=== PATIENT | male | born 1980 | race Caucasian/White ===

== ENCOUNTER 2016-11-19 19:26 | Emergency (ER) | payer SELFPAY ==
[~2016-11-19] VITALS: Ht 182.9 cm; Wt 161.3 kg
[~2016-11-19 19:26] MED LIST: IBUPROFEN800 MG PO; MOTRIN600 MG PO; NOHOMEMEDS; NORCO 5/3251 TABLET PO; NORCO 7.5/321 TABLET PO; VICODIN 5-3001 EACH PO
[2016-11-19 20:30] LABS: HEMATOCRIT 44.9 % (38.0-50.0); MCH 31.3 PG (29.0-34.0); MCHC 34.3 G/DL (30.0-36.0); MCV 91.3 FL (86-99); MEAN PLAT.VOLUME 10.9 uM^3 (9.0-12.4); PLATELET COUNT 150 K/uL (156-360); RBC DIS.WIDTH-CV 13.3 % (11.8-14.6); RBC DIS.WIDTH-SD 44.2 % (39-53); RED BLOOD COUNT 4.92 M/uL (4.00-5.50); WHITE BLOOD COUNT 6.4 K/uL (4.1-10.2)
[2016-11-19 20:48] LABS: CHLORIDE 106 mEq/L (99-109); POTASSIUM 4.1 mEq/L (3.7-5.4); SODIUM 142 mEq/L (136-147)
[2016-11-19 20:50] LABS: GLUCOSE 108 mg/dL (70-99)
[2016-11-19 20:51] LABS: ANION GAP 11 MEQ/L (2-14)
[2016-11-19 20:52] LABS: TOTAL BILIRUBIN 0.5 mg/dL (0.0-1.0)
[2016-11-19 20:53] LABS: ALKALINE PHOSPHATASE 68 IU/L (3-129)
[2016-11-19 20:54] LABS: GFR ESTIMATE (CALCULATED) 48 mL/min/
[2016-11-19 20:55] LABS: UREA NITROGEN (BUN) 19 mg/dL (9-23)
[2016-11-19 20:57] LABS: URIC ACID 7.6 mg/dL (3.1-9.2)
[2016-11-19 21:15] LABS: ADD MIUA? YES; BILIRUBIN NEGATIVE; BLOOD NEGATIVE; COLOR YELLOW ((YELLOW)); GLUCOSE (STRIP) NEGATIVE; KETONES NEGATIVE; LEUKOCYTES NEGATIVE; NITRITE NEGATIVE; PROTEIN (STRIP) NEGATIVE; SPECIFIC GRAVITY 1.013 (1.000-1.030); UROBILINOGEN 0.2 MG/DL (0.2-1.0)
[2016-11-19 21:22] LABS: BACTERIA NONE SEEN /HPF; EPITHELIAL CELLS NONE SEEN /HPF; MUCUS TRACE /LPF; RED BLOOD CELLS 0-5 /HPF (0-5); UCUL ADDED? NO; WHITE BLOOD CELLS 0-5 /HPF (0-5)
[2016-11-19 21:37] LABS: C-REACTIVE PROTEIN 2.8 MG/L (0-10)
[2016-11-19 22:06] VITALS: BP 140/81
== END 2016-11-19 22:07 | disposition home or self-care (01) ==
LOC: EME 19:26
PROVIDERS: Physician Assistant
DX: R94.5 Abnormal results of liver function studies (principal); R94.4 Abnormal results of kidney function studies; M79.89 Other specified soft tissue disorders; R60.0 Localized edema; F17.200 Nicotine dependence, unspecified, uncomplicated
CPT/HCPCS: 73630; 80053; 81003; 84550; 85027; 86140; 93971; 99281; 99283

== ENCOUNTER 2017-03-23 20:25 | Emergency (ER) | payer OTHER ==
[~2017-03-23] VITALS: Ht 182.9 cm; Wt 163.1 kg
[2017-03-23 20:52] LABS: ADD MIUA? NO; BILIRUBIN NEGATIVE; BLOOD NEGATIVE; COLOR YELLOW ((YELLOW)); GLUCOSE (STRIP) NEGATIVE; KETONES NEGATIVE; LEUKOCYTES NEGATIVE; NITRITE NEGATIVE; PROTEIN (STRIP) NEGATIVE; SPECIFIC GRAVITY 1.024 (1.000-1.030); UCUL ADDED? NO
[2017-03-23 21:25] LABS: HEMATOCRIT 45.9 % (38.0-50.0); MCH 31.4 PG (29.0-34.0); MCHC 34.2 G/DL (30.0-36.0); MCV 91.8 FL (86-99); MEAN PLAT.VOLUME 10.8 uM^3 (9.0-12.4); PLATELET COUNT 155 K/uL (156-360); RBC DIS.WIDTH-CV 13.4 % (11.8-14.6); RBC DIS.WIDTH-SD 45.2 % (39-53); WHITE BLOOD COUNT 7.5 K/uL (4.1-10.2)
[2017-03-23 21:48] LABS: ALKALINE PHOSPHATASE 81 IU/L (3-129); ANION GAP 8 MEQ/L (2-14); CHLORIDE 106 MEQ/L (99-109); GFR ESTIMATE (CALCULATED) > 59 mL/min/; GLUCOSE 106 mg/dL (70-99); LIPASE 31 U/L (1.0-51.0); POTASSIUM 3.9 MEQ/L (3.7-5.4); SAMPLE HEMOLYSIS CHECK 0; SAMPLE ICTERIC CHECK 0; SAMPLE LIPEMIA CHECK 0; SODIUM 138 MEQ/L (136-147); TOTAL BILIRUBIN 0.3 MG/DL (0.0-1.0); UREA NITROGEN (BUN) 15 mg/dL (9-23)
[2017-03-23] MEDS ORDERED: BENTYL10 MG PO (23:52)
[2017-03-23] MEDS ORDERED: PEPCID20 MG PO (23:52)
[2017-03-24 00:22] VITALS: BP 128/73
== END 2017-03-24 00:24 | disposition home or self-care (01) ==
LOC: EME 20:25 → RME 20:25
DX: R10.9 Unspecified abdominal pain (principal); F17.200 Nicotine dependence, unspecified, uncomplicated
CPT/HCPCS: 74176; 80053; 81003; 83690; 85027; 99281; 99284

== ENCOUNTER 2017-09-27 14:40 | Inpatient (IN) | payer OTHER ==
[~2017-09-27] VITALS: Ht 182.9 cm; Wt 128.8 kg
[~2017-09-27 14:40] MED LIST changes: +BENTYL10 MG PO; +PEPCID20 MG PO
[2017-09-27 15:09] LABS: HEMATOCRIT 47.4 % (38.0-50.0); HEMOGLOBIN 16.6 G/DL (12.5-16.6); MCH 31.5 PG (29.0-34.0); MCV 89.9 FL (86-99); PLATELET COUNT 164 K/uL (156-360); RBC DIS.WIDTH-CV 13.9 % (11.8-14.6); RBC DIS.WIDTH-SD 45.9 % (39-53); RED BLOOD COUNT 5.27 M/uL (4.00-5.50); WHITE BLOOD COUNT 6.4 K/uL (4.1-10.2)
[2017-09-27 15:17] LABS: CHLORIDE 103 mEq/L (99-109); POTASSIUM 4.5 mEq/L (3.7-5.4); SODIUM 137 mEq/L (136-147)
[2017-09-27 15:18] LABS: GLUCOSE 107 mg/dL (70-99)
[2017-09-27 15:22] LABS: GFR ESTIMATE (CALCULATED) > 59 mL/min/ (58.99-99999)
[2017-09-27 15:23] LABS: UREA NITROGEN (BUN) 10 mg/dL (9-23)
[2017-09-27 15:28] LABS: TROP-I INTERPRETATION NEGATIVE; TROPONIN-I 0.05 ng/mL (0.0-0.30)
[2017-09-27 17:40] LABS: TROP-I INTERPRETATION NEGATIVE; TROPONIN-I 0.22 ng/mL (0.0-0.30)
[2017-09-27] MEDS ORDERED: VENTOLIN HFA18 GM IH (18:16)
[2017-09-27] MEDS ORDERED: MOTRIN800 MG PO (18:16)
[2017-09-27] MEDS ORDERED: INCRUSE ELLI62.5 MCG IH (18:17)
[2017-09-27 19:49] LABS: ALBUMIN 4.1 g/dL (3.2-4.8)
[2017-09-27 19:52] LABS: TOTAL PROTEIN 7.6 g/dL (6.4-8.3)
[2017-09-27 19:54] LABS: TOTAL BILIRUBIN 0.6 mg/dL (0.0-1.0)
[2017-09-27 19:55] LABS: ALKALINE PHOSPHATASE 94 IU/L (3-129)
[2017-09-27 19:57] LABS: AST (GOT) 51 IU/L (2-34)
[2017-09-27 19:58] LABS: ALT (GPT) 81 IU/L (3-49); DIRECT BILIRUBIN 0.2 mg/dL (0.0-0.3)
[2017-09-27 19:59] LABS: LIPASE 23 U/L (1.0-51.0)
[2017-09-27 22:48] LABS: TROP-I INTERPRETATION POSITIVE
[2017-09-27 22:51] LABS: TROPONIN-I 1.63 ng/mL (0.0-0.30)
[2017-09-27 23:33] LABS: PTT 26.2 SEC (25-37)
[2017-09-28] VITALS (10 sets, daily range): BP systolic 103–154; BP diastolic 62–99
[2017-09-28 05:07] LABS: TROP-I INTERPRETATION POSITIVE; TROPONIN-I 7.85 ng/mL (0.0-0.30)
[2017-09-28 06:24] LABS: BASOPHIL (%) 0.5 % (0-1); EOSINOPHIL (%) 2.9 % (0-5); EOSINOPHIL COUNT 0.2 K/uL (0-0.3); HEMATOCRIT 42.1 % (38.0-50.0); IMMATURE GRANULOCYTE (%) 0.3 % (0.0-0.7); LYMPHOCYTE (%) 42.9 % (15-42); LYMPHOCYTE COUNT 2.7 K/uL (1.0-2.8); MCHC 34.2 G/DL (30.0-36.0); MCV 90.7 FL (86-99); MONOCYTE (%) 8.9 % (3-12); MONOCYTE COUNT 0.6 K/uL (0-0.8); NEUTROPHIL (%) 44.5 % (45-76); NEUTROPHIL COUNT 2.8 K/uL (1.8-6.4); PLATELET COUNT 156 K/uL (156-360); RBC DIS.WIDTH-CV 14.1 % (11.8-14.6); RBC DIS.WIDTH-SD 47.2 % (39-53); RED BLOOD COUNT 4.64 M/uL (4.00-5.50); WHITE BLOOD COUNT 6.2 K/uL (4.1-10.2)
[2017-09-28 06:29] LABS: HEMOGLOBIN 14.4 G/DL (12.5-16.6)
[2017-09-28 06:41] LABS: CHLORIDE 106 MEQ/L (99-109); GFR ESTIMATE (CALCULATED) > 59 mL/min/ (58.99-99999); GLUCOSE 99 mg/dL (70-99); POTASSIUM 4.1 MEQ/L (3.7-5.4); SODIUM 137 MEQ/L (136-147); UREA NITROGEN (BUN) 11 mg/dL (9-23)
[2017-09-28 08:15] LABS: BENZODIAZEPINES, URINE SCREEN Negative (200 ng/mL)
[2017-09-28 11:14] LABS: HDL CHOLESTEROL 37 MG/DL (Desirable>=40); LDL CHOLESTEROL 99 mg/dL (Desirable<100); NON-HDL CHOLESTEROL 121 mg/dL (Desirable<160); TOTAL CHOLESTEROL 158 mg/dL (Desirable<200); TRIGLYCERIDES 110 MG/DL (Normal: <150)
[2017-09-28 13:30] LABS: HEMOGLOBIN A1c (GLYCOHEMOGLOB) 5.2 % (Below 5.7)
[2017-09-29 04:30] VITALS: BP 96/54
[2017-09-29 06:11] LABS: HEMATOCRIT 44.1 % (38.0-50.0); HEMOGLOBIN 14.8 G/DL (12.5-16.6); MCH 30.6 PG (29.0-34.0); MCHC 33.6 G/DL (30.0-36.0); MCV 91.1 FL (86-99); PLATELET COUNT 158 K/uL (156-360); RBC DIS.WIDTH-SD 47.1 % (39-53); RED BLOOD COUNT 4.84 M/uL (4.00-5.50); WHITE BLOOD COUNT 6.3 K/uL (4.1-10.2)
[2017-09-29 06:35] LABS: CHLORIDE 104 MEQ/L (99-109); CREATININE 0.9 MG/DL (0.6-1.3); GFR ESTIMATE (CALCULATED) > 59 mL/min/ (58.99-99999); GLUCOSE 97 mg/dL (70-99); MAGNESIUM 2.1 mg/dl (1.3-2.7); POTASSIUM 4.3 MEQ/L (3.7-5.4); SODIUM 138 MEQ/L (136-147); UREA NITROGEN (BUN) 11 mg/dL (9-23)
[2017-09-29 07:15] VITALS: BP 115/77
[2017-09-29 11:25] VITALS: BP 111/58
[2017-09-29] MEDS ORDERED: ASPIR-LOW81 MG PO (14:00)
[2017-09-29] MEDS ORDERED: PRAVASTATIN SOD80 MG PO (14:00)
[2017-09-29 14:06] VITALS: BP 116/76
[2017-09-30 20:42] LABS: PROTEIN C FUNCTIONAL ACTIVITY+ 87 % (70-180)
[2017-10-01 10:58] LABS: ANTITHROMBIN III ACTIVITY+ 93 % activi (80-120)
[2017-10-01 13:04] LABS: Protein S, Free 109 % normal (57-171)
[2017-10-03 23:37] LABS: ACTIVATED PROTEIN C RESIST+ 4.8 ratio (>=2.1); DRVVT Mixing Study Interp Not Indicated (()); FACTOR VIII ACTIVITY+ 247 % (50-180); PROTEIN C FUNCTIONAL ACTIVITY+ 84 % (70-180); PTT-LA 29 sec (<=40); dRVVT Screen 35 sec (<=45)
[2017-10-04 11:09] LABS: ANTITHROMBIN III ACTIVITY+ 93 % activi (80-120)
== END 2017-09-29 14:52 | disposition home or self-care (01) | DRG 64 ==
LOC: EME 14:40 → EDOF 21:45 → ENRESERV 21:50 → CANRESERV 22:07 → 4EAST 22:58 → EDOF 22:58 → ENRESERV 22:59 → 4EAST 09-28 02:31
PROVIDERS: Hospitalist; Internal Medicine; Physician Assistant; Psychiatry & Neurology Clinical Neurophysiology
DX: I63.532 Cerebral infarction due to unspecified occlusion or stenosis of left posterior cerebral artery (principal); I24.8 Other forms of acute ischemic heart disease; G93.6 Cerebral edema; H53.121 Transient visual loss, right eye; R20.0 Anesthesia of skin; R51 Headache; G83.21 Monoplegia of upper limb affecting right dominant side; I10 Essential (primary) hypertension; E78.5 Hyperlipidemia, unspecified; G47.33 Obstructive sleep apnea (adult) (pediatric); G89.21 Chronic pain due to trauma; J45.909 Unspecified asthma, uncomplicated; E66.01 Morbid (severe) obesity due to excess calories; Z68.38 Body mass index [BMI] 38.0-38.9, adult; B19.20 Unspecified viral hepatitis C without hepatic coma; F11.10 Opioid abuse, uncomplicated; F14.10 Cocaine abuse, uncomplicated; F17.200 Nicotine dependence, unspecified, uncomplicated; Z91.19 Patient's noncompliance with other medical treatment and regimen; Z87.820 Personal history of traumatic brain injury; Z83.3 Family history of diabetes mellitus; Z80.1 Family history of malignant neoplasm of trachea, bronchus and lung
CPT/HCPCS: 70496; 70498; 70551; 70552; 71046; 71275; 80048; 80061; 80076; 80306 90; 81240 90; 83036; 83090 90; 83690; 83735; 84484; 85025; 85027; 85240 90; 85300 90; 85303 90; 85305 90; 85306 90; 85307 90; 85347; 85610; 85613 90; 85651; 85730; 85730 90; 86146 90; 86147 90; 93005; 93306; 94640; 94640 76; 99202; 99281; 99285; C1769; C1887; J1644; J2250; J3010; J7030; J7040

== ENCOUNTER 2017-12-27 16:55 | Inpatient (IN) | payer OTHER ==
[~2017-12-27] VITALS: Ht 182.9 cm; Wt 158.8 kg
[~2017-12-27 16:55] MED LIST changes: +ASPIR-LOW81 MG PO; +ASPIRIN325 MG PO; +INCRUSE ELLI62.5 MCG IH; +MOTRIN800 MG PO; +PRAVASTATIN SOD80 MG PO; +VENTOLIN HFA18 GM IH
[2017-12-27 17:47] LABS: ALBUMIN 4.1 g/dL (3.2-4.8)
[2017-12-27 17:48] LABS: CHLORIDE 110 mEq/L (99-109); POTASSIUM 4.7 mEq/L (3.7-5.4); SODIUM 140 mEq/L (136-147)
[2017-12-27 17:50] LABS: GLUCOSE 108 mg/dL (70-99); TOTAL PROTEIN 7.4 g/dL (6.4-8.3)
[2017-12-27 17:52] LABS: TOTAL BILIRUBIN 0.5 mg/dL (0.0-1.0)
[2017-12-27 17:53] LABS: ALKALINE PHOSPHATASE 86 IU/L (3-129)
[2017-12-27 17:54] LABS: CREATININE 1.1 mg/dL (0.6-1.3); GFR ESTIMATE (CALCULATED) > 59 mL/min/ (58.99-99999)
[2017-12-27 17:55] LABS: AST (GOT) 47 IU/L (2-34); DIRECT BILIRUBIN 0.1 mg/dL (0.0-0.3); UREA NITROGEN (BUN) 14 mg/dL (9-23)
[2017-12-27 17:57] LABS: ALT (GPT) 65 IU/L (3-49); LIPASE 37 U/L (1.0-51.0)
[2017-12-27 17:58] LABS: BASOPHIL (%) 0.5 % (0-1); EOSINOPHIL (%) 3.3 % (0-5); EOSINOPHIL COUNT 0.2 K/uL (0-0.3); HEMATOCRIT 41.4 % (38.0-50.0); HEMOGLOBIN 14.4 G/DL (12.5-16.6); IMMATURE GRANULOCYTE (%) 0.2 % (0.0-0.7); LYMPHOCYTE (%) 27.2 % (15-42); LYMPHOCYTE COUNT 1.7 K/uL (1.0-2.8); MCH 31.6 PG (29.0-34.0); MCHC 34.8 G/DL (30.0-36.0); MCV 90.8 FL (86-99); MONOCYTE (%) 8.3 % (3-12); MONOCYTE COUNT 0.5 K/uL (0-0.8); NEUTROPHIL (%) 60.5 % (45-76); NEUTROPHIL COUNT 3.9 K/uL (1.8-6.4); PLATELET COUNT 167 K/uL (156-360); RBC DIS.WIDTH-CV 12.8 % (11.8-14.6); RBC DIS.WIDTH-SD 42.3 % (39-53); RED BLOOD COUNT 4.56 M/uL (4.00-5.50); WHITE BLOOD COUNT 6.4 K/uL (4.1-10.2)
[2017-12-27 18:04] LABS: TROP-I INTERPRETATION NEGATIVE; TROPONIN-I 0.02 ng/mL (0.0-0.30)
[2017-12-27 21:16] LABS: SERUM ETHYL ALCOHOL < 10 mg/dL
[2017-12-27 21:55] VITALS: BP 157/95
[2017-12-27 22:04] LABS: TRIGLYCERIDES 162 MG/DL (Normal: <150)
[2017-12-27 22:05] LABS: HDL CHOLESTEROL 33 MG/DL (Desirable>=40); LDL CHOLESTEROL 67 mg/dL (Desirable<100); NON-HDL CHOLESTEROL 99 mg/dL (Desirable<160); TOTAL CHOLESTEROL 132 mg/dL (Desirable<200)
[2017-12-28 01:02] LABS: TROP-I INTERPRETATION POSITIVE
[2017-12-28 01:18] LABS: TROPONIN-I 0.81 ng/mL (0.0-0.30)
[2017-12-28 03:12] VITALS: BP 103/59
[2017-12-28 07:32] LABS: TROP-I INTERPRETATION POSITIVE; TROPONIN-I 1.57 ng/mL (0.0-0.30)
[2017-12-28 07:54] VITALS: BP 107/61
[2017-12-28 09:45] LABS: HEMOGLOBIN A1c (GLYCOHEMOGLOB) 5.3 % (Below 5.7)
[2017-12-28 10:00] LABS: TREPONEMA ANTIBODY NEGATIVE (NEGATIVE)
[2017-12-28 11:48] VITALS: BP 116/75
[2017-12-28 11:58] LABS: BENZODIAZEPINES, URINE SCREEN Negative (200 ng/mL)
[2017-12-28 14:34] LABS: TROP-I INTERPRETATION POSITIVE
[2017-12-28 15:36] VITALS: BP 128/72
[2017-12-28 20:00] VITALS: BP 122/87
[2017-12-28 23:34] VITALS: BP 116/70
[2017-12-29 05:44] LABS: HEMATOCRIT 41.1 % (38.0-50.0); HEMOGLOBIN 13.8 G/DL (12.5-16.6); MCH 31.2 PG (29.0-34.0); MCHC 33.6 G/DL (30.0-36.0); MCV 92.8 FL (86-99); PLATELET COUNT 150 K/uL (156-360); RBC DIS.WIDTH-CV 13.1 % (11.8-14.6); RBC DIS.WIDTH-SD 44.6 % (39-53); RED BLOOD COUNT 4.43 M/uL (4.00-5.50); WHITE BLOOD COUNT 6.3 K/uL (4.1-10.2)
[2017-12-29 06:07] LABS: CHLORIDE 107 MEQ/L (99-109); CREATININE 0.9 MG/DL (0.6-1.3); GFR ESTIMATE (CALCULATED) > 59 mL/min/ (58.99-99999); GLUCOSE 98 mg/dL (70-99); POTASSIUM 3.9 MEQ/L (3.7-5.4); SODIUM 139 MEQ/L (136-147); UREA NITROGEN (BUN) 12 mg/dL (9-23)
[2017-12-29] MEDS ORDERED: CLOPIDOGREL75 MG PO (07:42)
[2017-12-29] MEDS ORDERED: NICOTINE PATCH1 EAC2 TD (07:42)
[2017-12-29] MEDS ORDERED: ASPIR-LOW81 MG PO (07:42)
[2017-12-29] MEDS ORDERED: NIFEDIPINE ER30 MG PO (07:43)
[2017-12-29] MEDS ORDERED: NITROSTAT0.4 MG SL (07:43)
[2017-12-29 09:00] VITALS: BP 110/71
[2017-12-29 10:32] LABS: TROP-I INTERPRETATION POSITIVE
[2017-12-29 11:53] VITALS: BP 117/86
[2018-01-10] MEDS ORDERED: ZOLOFT50 MG PO (08:57)
== END 2017-12-29 12:37 | disposition home or self-care (01) | DRG 281 ==
LOC: EME 16:55 → EDOF 20:28 → 4SOUTH 20:28 → ENRESERV 21:04 → 4SOUTH 21:46 → ENPENDDIS 12-29 10:34 → 4SOUTH 12-29 12:37
PROVIDERS: Emergency Medicine; Internal Medicine; Internal Medicine Cardiovascular Disease; Physician Assistant Medical
DX: I21.4 Non-ST elevation (NSTEMI) myocardial infarction (principal); I20.1 Angina pectoris with documented spasm; I11.9 Hypertensive heart disease without heart failure; Q21.1 Atrial septal defect; G45.9 Transient cerebral ischemic attack, unspecified; G47.33 Obstructive sleep apnea (adult) (pediatric); J45.909 Unspecified asthma, uncomplicated; K76.0 Fatty (change of) liver, not elsewhere classified; B19.20 Unspecified viral hepatitis C without hepatic coma; F17.210 Nicotine dependence, cigarettes, uncomplicated; E66.01 Morbid (severe) obesity due to excess calories; Z68.42 Body mass index [BMI] 45.0-49.9, adult; Z79.82 Long term (current) use of aspirin; Z86.73 Personal history of transient ischemic attack (TIA), and cerebral infarction without residual deficits; Z87.820 Personal history of traumatic brain injury; Z91.19 Patient's noncompliance with other medical treatment and regimen
CPT/HCPCS: 70450; 70496; 70498; 70551; 71046; 80048; 80061; 80076; 80306 90; 83036; 83690; 83880; 84484; 85025; 85027; 85610; 85651; 85730; 86038; 86141; 86780; 93005; 94640; 94799; 99281; 99285; G0378; G0480; J1644

== ENCOUNTER → 2018-01-11 | Outpatient (CLI) | payer OTHER ==
[~2018-01-11] VITALS: Ht 182.9 cm; Wt 113.4 kg
[~2018-01-11] MED LIST changes: +CLOPIDOGREL75 MG PO; +NICOTINE PATCH1 EAC2 TD; +NIFEDIPINE ER30 MG PO; +NITROSTAT0.4 MG SL; +ZOLOFT50 MG PO
== END | disposition home or self-care (01) ==
LOC: AMB 09:20
PROC: B24BZZ4 Ultrasonography of Heart with Aorta, Transesophageal (ICD-10-PCS; principal; 2018-01-11)
DX: I34.0 Nonrheumatic mitral (valve) insufficiency (principal); Z86.73 Personal history of transient ischemic attack (TIA), and cerebral infarction without residual deficits; F17.200 Nicotine dependence, unspecified, uncomplicated; I25.2 Old myocardial infarction; R94.31 Abnormal electrocardiogram [ECG] [EKG]
CPT/HCPCS: 93312; 93325; J2250